=== PATIENT | female | born 1995 ===

== ENCOUNTER 2021-08-11 20:46 | Emergency (ER) | payer MEDICAID ==
[2021-08-11] MEDS ORDERED: Lorazepam 2 MG/ML VIAL ONE (21:38)
[2021-08-11] MEDS ORDERED: Lorazepam 1 MG TAB ONE (22:02)
== END 2021-08-11 23:36 | disposition home or self-care (01) ==
LOC: ERS 20:46
DX: F43.0 Acute stress reaction (principal); R55 Syncope and collapse; S80.01XA Contusion of right knee, initial encounter; W18.30XA Fall on same level, unspecified, initial encounter
CPT/HCPCS: 93005; J2060